=== PATIENT | male | born 2000 | race African-American/Black ===

== ENCOUNTER 2021-03-06 15:28 | Emergency (ER) | payer OTHER ==
[~2021-03-06] VITALS: Ht 172.7 cm; Wt 73.7 kg
[2021-03-06] MEDS ORDERED: IBUP-1114 PO (18:27)
[2021-03-06] MEDS ORDERED: METOCLOPRAMIDE 10 MG TAB PO ONE (18:45)
[2021-03-06] MEDS ORDERED: NAPROXEN 250 MG TAB PO ONE (18:45)
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
[2021-03-06] MEDS ORDERED: REGL10TA6 PO (20:22)
[2021-03-06 20:30] VITALS: BP 142/95
== END 2021-03-06 20:31 | disposition home or self-care (01) ==
LOC: M ED 15:28
DX: Z04.1 Encounter for examination and observation following transport accident (principal); S06.0X0A Concussion without loss of consciousness, initial encounter; V89.2XXA Person injured in unspecified motor-vehicle accident, traffic, initial encounter; Y92.89 Other specified places as the place of occurrence of the external cause; Y93.89 Activity, other specified; Y99.8 Other external cause status